=== PATIENT | male | born 1995 | race Caucasian/White ===

== ENCOUNTER 2016-06-21 22:23 | Emergency (ER) | payer OTHER ==
[~2016-06-21] VITALS: Ht 188 cm; Wt 85.0 kg
[2016-06-21 22:27] VITALS: TEMP 36.8; Ht 188 cm; Wt 85.0 kg
[2016-06-22] MEDS ORDERED: XYLOCAINE 1%/SOD BICARB 20 ML VIAL INFIL ONE
[2016-06-22 00:42] VITALS: BP 134/77; PULSE 89; O2SAT 98
--- NOTE | 2016-06-22 04:29 | EMERGENCY ROOM VISIT NOTE ---
ED Visit Note First contact with patient: 23:32 CHIEF COMPLAINT: Right hand laceration HISTORY OF PRESENT ILLNESS: This 21-year-old patient presents to the emergency department with friend after cutting the right hand on a broken broomstick. The bleeding has not stopped. Denies weakness or numbness of the extremity. patient has full range of motion of the extremity The patient rates the pain as mild and 2/10. The patient denies any other injuries. The patient's tetanus shot is up to date. REVIEW OF SYSTEMS: A 6 system review of systems was completed with positives and pertinent negatives listed in the HPI. ALLERGIES: none MEDICATIONS: none PMH: none SOCIAL HISTORY: No drug use PHYSICAL EXAM: Vital Signs: Reviewed Nurse's notes, vital signs stable. GENERAL : Pleasant male, in no acute distress, well developed, well nourished. SKIN: There is a 4 cm long laceration on the palm of the right hand extending to the second finger. The edges gape apart with traction. There is no foreign material in the wound and it looks clean. There is bleeding. No deep structures such as tendons, bones, or significant blood vessels are seen in the base of the wound. Extension and flexion of the extremity is full and strong. Full range of motion of the extremity. Capillary refill less than 2 seconds. Normal sensation to light and sharp touch. EMERGENCY DEPARTMENT COURSE: I examined the patient. Using sterile technique the wound was cleansed with Betadine. 3 ml of 1% buffered lidocaine was used to anesthetize the patient. The area was sterilely draped. Once the patient was anesthetized, the wound was copiously irrigated under pressure with sterile saline. The wound was explored and there were no deep structures injured. The laceration was repaired using 10 simple interrupted 5-0 nylon sutures. The patient tolerated the procedure well. Hemostasis was achieved. The area was cleaned with sterile saline and dressed with bacitracin ointment and bandage. The patient was discharged home in good condition. Differential diagnosis includes laceration, tendon injury, vascular injury and other etiologies were considered. DIAGNOSIS: Right hand laceration DISCHARGE INSTRUCTIONS & TREATMENT: Keep wound clean and dry. Do not allow any crusting or dried blood to accumulate on sutures. If this occurs, use a 1:1 solution of hydrogen peroxide/water on a Q-tip to clean the wound. Use an antibiotic ointment for 3-4 days, then let wound dry. Suture removal in 10-12 days. Return sooner for any signs of infection (increasing redness, swelling, drainage). Ice and elevate for swelling and pain. Ibuprofen 600 mg and Tylenol 1000 mg every 6 hrs for pain. Keep covered when in sun until sutures removed then SPF 50 or higher for one year. Vitamin E oil if desired two weeks after suture removal for reduction of scar. Allergies Coded Allergies: No Known Allergies (Unverified , 06/21/16) Vital Signs Date Time Temp Pulse Resp B/P Pulse Ox O2 Delivery O2 Flow Rate FiO2 06/22/16 00:42 89 16 134/77 98 06/21/16 22:27 36.8 103 20 150/88 96 Room Air Departure Information Impression Primary Impression: Laceration of right hand Dispostion Home / Self-Care Condition GOOD Forms WORK / SCHOOL INSTRUCTIONS, HOME CARE DOCUMENTATION FORM, IMPORTANT VISIT INFORMATION Patient Instructions [facility], ED Laceration All Additional Instructions Keep wound clean and dry. Do not allow any crusting or dried blood to accumulate on sutures. If this occurs, use a 1:1 solution of hydrogen peroxide/ water on a Q-tip to clean the wound. Use an antibiotic ointment for 3-4 days, then let wound dry. Suture removal in 10-12 days. Return sooner for any signs of infection (increasing redness, swelling, drainage). Ice and elevate for swelling and pain. Ibuprofen 600 mg and Tylenol 1000 mg every 6 hrs for pain. Keep covered when in sun until sutures removed then SPF 50 or higher for one year. Vitamin E oil if desired two weeks after suture removal for reduction of scar.
== END 2016-06-22 00:44 | disposition home or self-care (01) ==
LOC: C.EDB 22:24 → C.EDC 06-22 00:44
DX: S61.411A Laceration without foreign body of right hand, initial encounter (principal); W45.8XXA Other foreign body or object entering through skin, initial encounter

== ENCOUNTER 2017-11-02 20:15 | Emergency (ER) | payer OTHER ==
[~2017-11-02] VITALS: Ht 188 cm; Wt 89.7 kg
[2017-11-02 20:28] VITALS: TEMP 36.7; Ht 188 cm; Wt 89.7 kg
--- NOTE | 2017-11-02 21:11 | DIAGNOSTIC IMAGING REPORT ---
RIGHT FOURTH FINGER 3 VIEWS HISTORY: R 4th digit crush injury distal COMPARISON: None. FINDINGS: There is no fracture or dislocation. Distal soft tissue swelling. No radiopaque foreign bodies. IMPRESSION: No fracture or dislocation within the right fourth finger. There is distal soft tissue swelling. Electronically signed by: Giovanny Hernandez M.D. 11/02/2017 9:09 PM Dictated Date/Time: 11/02/2017 9:08 PM
[2017-11-02] MEDS ORDERED: CEPHALEXIN 500MG HOME PACK 1 EA BTL PO STA (21:23)
[2017-11-02] MEDS ORDERED: CEPH500C PO (21:25)
--- NOTE | 2017-11-02 21:25 | EMERGENCY ROOM VISIT NOTE ---
ED Visit Note First contact with patient: 20:45 Chief Complaint: "Swollen black fingernail". History of Present Illness: This patient is a 22-year-old male who presents to the Emergency Department via private vehicle for evaluation of their right second digit crush injury. Patient sustained the injury 2 days ago when he was moving a table through a doorway notes that he pinched the right second digit fingernail region between the door and the doorway. He notes there is minimal numbness at the distalmost aspect of the right second digit. He is right-hand dominant. No decreased range of motion. Current discomfort is a 3/10. Medications: As noted below Allergies: None PMH: No pertinent SHx: Patient is a [employer] student and lives locally. ROS: All pertinent positive and negative review of systems are appropriately documented in the History of Present Illness. Physical Exam: VITAL SIGNS - Vital signs and nursing notes were reviewed. Stable. GENERAL -22-year-old male appearing his stated age who is in no acute distress. Communicates well with provider and answers questions appropriately. SKIN -no lacerations or breaks in the integument noted overlying right second digit. There is a large subungual hematoma with edema about the right distal second digit fingernail region and cuticle. MUSCULOSKELETAL -full range of motion of the right second digit. NEUROLOGIC -he is neurovascularly intact in the right second digit. VASCULAR - Capillary refill was brisk of the right second digit. IMAGING: RIGHT FOURTH FINGER 3 VIEWS HISTORY: R 4th digit crush injury distal COMPARISON: None. FINDINGS: There is no fracture or dislocation. Distal soft tissue swelling. No radiopaque foreign bodies. IMPRESSION: No fracture or dislocation within the right fourth finger. There is distal soft tissue swelling. Electronically signed by: Giovanny Hernandez M.D. 11/02/2017 9:09 PM Dictated Date/Time: 11/02/2017 9:08 PM ED Course: Patient was seen and evaluated by myself. Risks and benefits of management were discussed. X-ray does not reveal any fracture. I do believe the trephination of the subungual hematoma on the patient's right second finger is appropriate. Patient consented. Betadine was placed over the right second digit fingernail. A sterile 18-gauge needle was then utilized to gently bur a small hole down through the nail. Patient tolerated this well. No pain. I was then able to express a large amount of darkened blood. The edema about the right second digit greatly improved. Excellent capillary refill. Patient noted significant improvement of his symptoms. Region was then dressed with a gentle dressing to collect any residual drainage. I will place him on Keflex to prevent infection secondary to the penetration through the nail and clinical appearance. Patient educated on worrisome symptoms for return visit to the Emergency Department. Patient discharged to home in good condition. In the evaluation and treatment of this patient, the following differential diagnoses were considered: Finger Fracture, Finger Dislocation, Finger Sprain, Finger Contusion, Jersey Finger, or Mallet Finger. Current/Historical Medications Scheduled Cephalexin Monohydrate (Keflex), 500 MG PO TID Allergies Coded Allergies: No Known Allergies (Unverified , 06/21/16) Vital Signs Date Time Temp Pulse Resp B/P (MAP) Pulse Ox O2 Delivery O2 Flow Rate FiO2 11/02/17 22:06 72 18 123/72 98 11/02/17 20:28 36.7 55 18 135/83 98 Room Air Medications Administered Medications (Trade) Dose Ordered Sig/Sherita Route Start Time Stop Time Status Last Admin Dose Admin Cephalexin Monohydrate (Keflex 500MG Home Pack) 1 homepack NOW STAT PO 11/02/17 21:23 11/02/17 21:24 DC 11/02/17 21:23 1 HOMEPACK Departure Information Impression Primary Impression: Subungual hematoma of finger Dispostion Home / Self-Care Condition GOOD Prescriptions Cephalexin Monohydrate (Keflex) 500 Mg Cap 500 MG PO TID for 4 Days, #12 CAP Prov: Trevon Lee PA-C 11/02/17 Referrals No Doctor, Assigned (PCP) Patient Instructions [facility] Additional Instructions You have been treated in the Emergency Department for finger Pain. Keflex 500mg every 8 hours to help prevent infection For pain control, you can use the following [id number] medicines (if >12 yo): - Regular strength (325mg/tab) Tylenol (acetaminophen) 2 tabs every 4-6 hours as needed. Do not exceed 12 tablets in a 24 hour period. Avoid taking more than 3 grams (3000 mg) of Tylenol per day. This includes any other sources of acetaminophen you may take on a regular basis. - Regular strength (200 mg/tab) Advil (ibuprofen) 1-2 tabs every 4-6 hours as needed. Do not exceed a dose of 3200 mg per day. If this is a recent injury (<24 hrs), ice can be applied to the area of pain for the first 3 days to help decrease pain and inflammation. Please follow up with [facility] in 2-3 days if persistent or return here with worse. Return to the Emergency Department if your current symptoms worsen despite treatment course outlined above, or if you develop any of the following symptoms : intractable pain despite aforementioned treatment course or new onset of numbness or tingling of the fingers.
[2017-11-02 22:06] VITALS: BP 123/72; PULSE 72; O2SAT 98
== END 2017-11-02 22:00 | disposition home or self-care (01) ==
LOC: C.EDB 20:16 → C.EDD 22:00
DX: S60.121A Contusion of right index finger with damage to nail, initial encounter (principal); W23.1XXA Caught, crushed, jammed, or pinched between stationary objects, initial encounter; Y93.89 Activity, other specified